=== PATIENT | female | born 1995 | race Caucasian/White ===

== ENCOUNTER 2017-07-27 01:16 | Emergency (ER) | payer SELFPAY, OTHER | END 2017-07-27 06:03 | disposition left against medical advice (07) | LOC: FTE 01:16 | DX: Z53.21 Procedure and treatment not carried out due to patient leaving prior to being seen by health care provider (principal) ==

== ENCOUNTER 2017-07-28 01:20 | Emergency (ER) | payer OTHER ==
[2017-07-28] MEDS: KETOROLAC 30 MG INJ IM (03:59)
== END 2017-07-28 04:46 | disposition home or self-care (01) ==
LOC: FTE 01:20
DX: R51 Headache (principal)
CPT/HCPCS: 81025; 96372; 99284-25

== ENCOUNTER 2017-10-20 11:53 | Emergency (ER) | payer OTHER | END 2017-10-20 13:00 | disposition home or self-care (01) | LOC: FTE 11:53 | DX: H10.813 Pingueculitis, bilateral (principal); Z79.82 Long term (current) use of aspirin | CPT/HCPCS: 99283; Z7502 ==